=== PATIENT | male | born 1985 | race Caucasian/White ===

== ENCOUNTER 2017-01-23 00:16 | Emergency (ER) | payer BC ==
[2017-01-23 00:25] VITALS: BP 183/81
[2017-01-23] MEDS ORDERED: Aspirin 81 MG Tab.Chew PO ONE (00:30)
--- NOTE | 2017-01-23 00:43 | EDM.PDOC ---
ED HPI GENERAL MEDICAL PROBLEM - General Chief Complaint: Chest Pain Stated Complaint: CHEST PAIN Time Seen by Provider: 01/23/17 00:20 Source of Information: Reports: Patient History Limitations: Reports: No Limitations - History of Present Illness INITIAL COMMENTS - FREE TEXT/NARRATIVE: HISTORY AND PHYSICAL: History of present illness: [31-year-old male with a history of chest pain associated with anxiety attacks for several years, now presents to the emergency department complaining of chest pain typical for him with onset of anxiety. Patient states he was watching TV when he became anxious and a little bit sweaty. He perceived the same chest "fullness" that he gets every time he feels anxious. As mentioned the symptoms have been going on for 3 years but he has never been evaluated for it nor had a stress test. He has no history of exertional symptoms whatsoever. Patient does not smoke does not have a known history of high blood pressure that he is aware of, no history of high cholesterol or diabetes. Once previously patient's blood pressure was elevated in a medical setting after which he got a home blood pressure monitor and with routine monitoring remained normal. Patient states his father had 2 stents placed at just over 55 years old. The patient himself has never had a stress test or cardiac catheterization nor has he ever been admitted for cardiac workup Review of systems: As per history of present illness and below otherwise all systems reviewed and negative. Past medical history: As per history of present illness and as reviewed below otherwise noncontributory. Surgical history: As per history of present illness and as reviewed below otherwise noncontributory. Social history: No reported history of drug or alcohol abuse. Family history: As per history of present illness and as reviewed below otherwise noncontributory. Physical exam: Well-appearing patient distress alert communicative and appropriate. Clear lungs regular rhythm nontender chest wall benign abdomen including epigastrium. No CVA tenderness normal extremities nonfocal neuro HEENT: Atraumatic, normocephalic, pupils reactive, negative for conjunctival pallor or scleral icterus, mucous membranes moist, throat clear, neck supple, nontender, trachea midline. Lungs: Clear to auscultation, breath sounds equal bilaterally, chest nontender. Heart: S1S2, regular, negative for clicks, rubs, or JVD. Abdomen: Soft, nondistended, nontender. Negative for masses or hepatosplenomegaly. Negative for costovertebral tenderness. Pelvis: Stable nontender. Genitourinary: Deferred. Rectal: Deferred. Extremities: Atraumatic, negative for cords or calf pain. Neurovascular unremarkable. Neuro: Awake, alert, oriented. Cranial nerves II through XII unremarkable. Cerebellum unremarkable. Motor and sensory unremarkable throughout. Exam nonfocal. Diagnostics: [EKG with normal sinus rhythm at 62 normal axis no STEMI interpreted by me Chest x-ray no acute disease interpreted by me Therapeutics: Aspirin given by mouth [] Impression: [Nonspecific chest pain Anxiety exacerbation] Plan: [Signs and symptoms consistent with patient's chronic recurrent chest discomfort associated with anxiety attacks. Patient does not have clinical evidence of acute coronary syndrome and has had no exertional pain whatsoever. He has no pleuritic pain or infectious prodrome. The symptoms were rest onset and identical to a three-year history of the same. EKG benign. Full workup unremarkable. Patient's heart score 1. He is stable and comfortable on reevaluation prior to discharge. No further workup or treatment indicated. Patient agrees with outpatient follow-up .he will follow-up with cardiology as an outpatient for a stress test to eliminate this as a source of worry which could contribute to his anxiety. Patient is aware there is some risk outpatient follow-up but that outpatient management is consistent with standard of care in this situation. Strict return precautions given Definitive disposition and diagnosis as appropriate pending reevaluation and review of above. chest pain Pain Score (Numeric/FACES): 5 - Related Data Allergies Allergy/AdvReac Type Severity Reaction Status Date / Time No Known Allergies Allergy Verified 01/23/17 00:23 Home Meds: Home Meds . [No Known Home Meds] 01/23/17 [History] Past Medical History HEENT History: Reports: None Cardiovascular History: Reports: None Respiratory History: Reports: None Gastrointestinal History: Reports: None Genitourinary History: Reports: None Musculoskeletal History: Reports: None Neurological History: Reports: None Psychiatric History: Reports: Anxiety Endocrine/Metabolic History: Reports: None Hematologic History: Reports: None Immunologic History: Reports: None Oncologic (Cancer) History: Reports: None Dermatologic History: Reports: None - Infectious Disease History Infectious Disease History: Reports: None Social & Family History - Family History Family Medical History: Noncontributory - Tobacco Use Smoking Status *Q: Never Smoker - Caffeine Use Caffeine Use: Reports: None - Recreational Drug Use Recreational Drug Use: No ED ROS GENERAL - Review of Systems Review Of Systems: See Below (History of present illness) ED EXAM, GENERAL - Physical Exam Exam: See Below (History of present illness) Course - Vital Signs Last Recorded V/S: Last Vital Signs Temp 36.6 C 01/23/17 00:23 Pulse 70 01/23/17 00:23 Resp 18 01/23/17 00:23 BP 183/81 H 01/23/17 00:23 Pulse Ox 99 01/23/17 00:23 - Orders/Labs/Meds Orders: Active Orders 24 hr Category Date Time Status EKG 12 Lead [EKG Documentation Completion] [RC] STAT Care 01/23/17 00:30 Active Chest 1V Frontal [CR] Stat Exams 01/23/17 00:30 Taken Peripheral IV Insertion Adult [OM.PC] Stat Oth 01/23/17 00:30 Ordered Labs: Laboratory Tests 01/23/17 01/23/17 01/23/17 Range/Units 00:39 00:39 00:39 WBC 7.31 (4.0-11.0) K/uL RBC 5.79 (4.50-5.90) M/uL Hgb 16.0 (13.0-17.0) g/dL Hct 46.1 (38.0-50.0) % MCV 79.6 L (80.0-98.0) fL MCH 27.6 (27.0-32.0) pg MCHC 34.7 (31.0-37.0) g/dL RDW Std Deviation 38.3 (28.0-62.0) fl RDW Coeff of Michi 14 (11.0-15.0) % Plt Count 222 (150-400) K/uL MPV 10.90 (7.40-12.00) fL Neut % (Auto) 45.9 L (48.0-80.0) % Lymph % (Auto) 43.4 H (16.0-40.0) % [place] % (Auto) 6.6 (0.0-15.0) % Eos % (Auto) 3.7 (0.0-7.0) % Baso % (Auto) 0.4 (0.0-1.5) % Neut # (Auto) 3.4 (1.4-5.7) K/uL Lymph # (Auto) 3.2 H (0.6-2.4) K/uL [place] # (Auto) 0.5 (0.0-0.8) K/uL Eos # (Auto) 0.3 (0.0-0.7) K/uL Baso # (Auto) 0.0 (0.0-0.1) K/uL Nucleated RBC % 0.0 /100WBC Nucleated RBCs # 0 K/uL Sodium 141 (136-146) mmol/L Potassium 3.8 (3.5-5.1) mmol/L Chloride 106 (98-110) mmol/L Carbon Dioxide 26 (21-31) mmol/L BUN 18 (6.0-23.0) mg/dL Creatinine 1.4 (0.6-1.5) mg/dL Est Cr Clr Drug Dosing 78.21 mL/min Estimated GFR (MDRD) 58.7 ml/min Glucose 100 (60-110) mg/dL Calcium 9.6 (8.8-10.8) mg/dL Total Bilirubin 0.4 (0.1-1.5) mg/dL AST 22 (5-40) IU/L ALT 26 (8-54) IU/L Alkaline Phosphatase 67 (40-150) Troponin I < 0.10 (0.0-0.29) NG/ML Total Protein 7.3 (6.0-8.0) g/dL Albumin 4.4 (3.5-5.0) g/dL Globulin 2.9 (2.0-3.5) g/dL Albumin/Globulin Ratio 1.5 (1.3-2.8) Meds: Medications Discontinued Medications Generic Name Dose Route Start Last Admin Trade Name Freq PRN Reason Stop Dose Admin Aspirin 324 mg 01/23/17 00:30 01/23/17 00:56 Aspirin PO 01/23/17 00:31 324 mg ONETIME ONE Administration Departure - Departure Time of Disposition: 01:33 Disposition: Home, Self-Care 01 Condition: Good Clinical Impression: Nonspecific chest pain, Acute anxiety, Hypertension Instructions: Nonspecific Chest Pain, [id number] Forms: ED Department Discharge Additional Instructions: It appears that your chest discomfort this evening is not associated with your heart. The fact that you have experienced this kind of discomfort often when you 've had attacks of anxiety over the past 3 years is reassuring. A full cardiac workup today was unremarkable and showed no signs of the source for your discomfort being evolving heart disease. Out of an abundance of caution, it is appropriate for you to follow-up with Dr. Benson /cardiology as an outpatient for a stress test. A negative stress test will put your mind at ease and eliminate worry about heart disease as a possible contributory factor for your anxiety. Follow-up with your DrSonny in one day as well. Take 81 mg of aspirin daily and return immediately for new severe or worsening symptoms. - My Orders Last 24 Hours: My Active Orders 01/23/17 00:30 EKG 12 Lead [EKG Documentation Completion] [RC] STAT Chest 1V Frontal [CR] Stat Peripheral IV Insertion Adult [OM.PC] Stat - Assessment/Plan Last 24 Hours: My Active Orders 01/23/17 00:30 EKG 12 Lead [EKG Documentation Completion] [RC] STAT Chest 1V Frontal [CR] Stat Peripheral IV Insertion Adult [OM.PC] Stat
--- NOTE | 2017-01-24 14:25 | CR ---
EXAM DATE: 01/23/17 PATIENT'S AGE: 31 Patient: MAEVE MOSES Facility: [place] Site . Site : 1985 Study: XRay Chest [id number]/1/2017 12:58:51 AM Ordering Physician: Faraz Crouch Final Report: INDICATIONS: Chest pain. TECHNIQUE: Chest 1 view portable. COMPARISON: None. FINDINGS: No pneumothorax, pleural effusion or airspace consolidation. Cardiac and mediastinal contours are within normal limits. Upper abdomen and osseous structures show no acute abnormality. IMPRESSION: No evidence of acute cardiopulmonary disease. Dictated by Renato Giles MD @ 01/23/2017 1:02:09 AM Dictated by: Renato Giles MD @ 01/23/2017 01:02:36 (Electronic Signature) Report Signed by Proxy. [facility]
== END 2017-01-23 02:00 | disposition home or self-care (01) ==
LOC: MW.ED 00:16
DX: F41.9 Anxiety disorder, unspecified (principal); R07.89 Other chest pain; I10 Essential (primary) hypertension
CPT/HCPCS: 36415; 71010; 80053; 84484; 85025; 93005; 99285; A9270; 99283